=== PATIENT | female | born 1990 | race Caucasian/White ===

== ENCOUNTER → 2021-02-18 13:33 | Outpatient (CLI) | payer BC, SELFPAY ==
--- NOTE | ~2021-02-18 | US_ITS ---
EXAMINATION: US abdomen complete EXAM DATE: 02/18/2021 14:06 INDICATION: Liver disease. TECHNIQUE: Multiple grayscale and Doppler images of the complete abdomen were obtained (by a technolo gist who performed the scan) and subsequently reviewed. There is no prior study for comparison. FINDINGS: The abdominal aorta is normal in caliber. Visualized portion IVC is patent. The pancreatic head a nd body are normal in appearance. The pancreatic tail is not visualized. The liver has normal echogenicity and contour. There are no focal liver lesions identified. There is no evidence of intrahepatic biliary duct dilation. Portal venous flow was seen in the hepatopedal , normal direction and has normal Doppler waveform. Common bile duct measures 4 mm, which is normal. The gallbladder wall is normal in thickness, with ex pected amount of distention. No sonographic evidence of pericholecystic fluid. There is no cholelit hiases. Technologist performing exam reports patient did not demonstrate sonographic James's sign. Please note that this sign is less reliable in patients who have received pain medication. Right kidney: There is normal contour and echogenicity. It measures 12.9 x 4.4 x 5.5 centimeters. There are no focal renal lesions identified. There is no hydronephrosis. Left kidney: There is normal contour and echogenicity. It measures 11.9 x 5.4 x 4.6 centimeters. T here are no focal renal lesions identified. There is no hydronephrosis. The spleen measures 10.7 centimeters and is morphologically normal. IMPRESSION: 1. Unremarkable complete abdominal ultrasound exam. Reviewed, dictated and finalized at location B.
== END ==
PROVIDERS: PCP Emergency Medicine; Visit Provider Emergency Medicine
DX: K76.9 Liver disease, unspecified (principal)
CPT/HCPCS: 76700

== ENCOUNTER 2021-02-18 13:34 | Outpatient (CLI) | payer BC, SELFPAY ==
--- NOTE | ~2021-02-18 | US_ITS ---
EXAMINATION: US thyroid EXAM DATE: 02/18/2021 14:06 INDICATION: Goiter . TECHNIQUE: Multiple grayscale and Doppler images of the thyroid were obtained (by a technologist who performed the scan) and subsequently reviewed. Individual nodules and recommendations may be reporte d in accordance with TI-RADS system as designated by the 2017 ACR White Paper TI-RADS committee. Comp arison is made to prior examination from 02/27/2018. FINDINGS: Unremarkable left thyroidectomy bed. The right there are lobe measures 6.0 x 2.0 x 1.9 cm, moderately enlarged. There is mildly heterogeneous thyroid echogenicity without focal nodule identified. IMPRESSION: Moderately enlarged right thyroid lobe. Reviewed, dictated and finalized at location B.
== END 2021-02-18 13:35 ==
PROVIDERS: PCP Emergency Medicine; Visit Provider Internal Medicine Endocrinology, Diabetes & Metabolism
DX: E04.9 Nontoxic goiter, unspecified (principal)
CPT/HCPCS: 76536

== ENCOUNTER 2021-12-29 18:43 | Emergency (ER) | payer OTHER, SELFPAY ==
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
[2021-12-29 18:50] VITALS: BP 129/92; PULSE 95; RESP 15; TEMP 36.9; O2SAT 100
== END 2021-12-29 19:24 | disposition home or self-care (01) ==
PROVIDERS: Emergency Provider Nurse Practitioner Family; PCP Emergency Medicine
DX: M25.522 Pain in left elbow (principal); Y04.8XXA Assault by other bodily force, initial encounter; E03.9 Hypothyroidism, unspecified
CPT/HCPCS: 73080; 99203; G0463